=== PATIENT | female | born 1955 | race Two or more races ===

== ENCOUNTER 2022-07-09 09:11 | Outpatient (CLI) | payer OTHER | END 2022-07-09 09:22 | disposition home or self-care (01) | LOC: MRI 09:11 | DX: M75.31 Calcific tendinitis of right shoulder (principal) | CPT/HCPCS: 73218 ==

== ENCOUNTER 2022-08-06 07:14 | Outpatient (CLI) | payer OTHER | END 2022-08-06 07:15 | disposition home or self-care (01) | LOC: NUCLEAR 07:14 | DX: M06.9 Rheumatoid arthritis, unspecified (principal) ==